=== PATIENT | female | born 1955 | race Caucasian/White ===

== ENCOUNTER 2018-02-27 12:00 | Emergency (ER) | payer OTHER ==
[~2018-02-27] VITALS: Ht 154.9 cm; Wt 69.0 kg
[2018-02-27] MEDS ORDERED: Nortriptyline H10 MG PO (12:17)
[2018-02-27] MEDS ORDERED: ALPR.25 PO (12:17)
[2018-02-27] MEDS ORDERED: HYDR1TAB94 PO (13:38)
[2018-02-27] MEDS ORDERED: CRUTCH2 XX (13:39)
== END 2018-02-27 13:49 | disposition home or self-care (01) ==
LOC: ER 12:00
DX: S82.832A Other fracture of upper and lower end of left fibula, initial encounter for closed fracture (principal); W22.8XXA Striking against or struck by other objects, initial encounter; Z79.899 Other long term (current) drug therapy; Z87.891 Personal history of nicotine dependence
CPT/HCPCS: 29515; 73610; 99283-25

== ENCOUNTER → 2019-09-23 | Outpatient (CLI) | payer OTHER ==
[~2019-09-23] MED LIST: ALPR.25 PO; CRUTCH2 XX; HYDR1TAB94 PO; Nortriptyline H10 MG PO
[2019-09-26 13:07] LABS: HPV 16 Negative (Negative); HPV 18 Negative (Negative); HPV OTHER HR TYPES Negative (Negative)
== END ==
LOC: LAB 12:14 → LAB SHORT 12:14
PROVIDERS: Student in an Organized Health Care Education/Training Program
DX: Z01.419 Encounter for gynecological examination (general) (routine) without abnormal findings (principal)
CPT/HCPCS: 87624; G0145

== ENCOUNTER → 2023-06-18 | Outpatient (CLI) | payer MEDICARE, OTHER ==
[2023-06-25 00:33] LABS: HPV GENOTYPE 16 Not Detected; HPV GENOTYPE 18 Not Detected; HPV HIGH RISK Not Detected; HPV SOURCE Vaginal
== END ==
LOC: LAB 10:35 → LAB SHORT 10:35
PROVIDERS: Family Medicine
DX: Z01.419 Encounter for gynecological examination (general) (routine) without abnormal findings (principal)
CPT/HCPCS: 87624; G0123